=== PATIENT | male | born 1995 | race Caucasian/White ===

== ENCOUNTER 2017-01-08 20:51 | Emergency (ER) | payer OTHER ==
[2017-01-08] MEDS ORDERED: LORazepam INJ* 2 MG/ML 1 ML VIAL IV PUSH ONE (20:58)
[2017-01-08] MEDS ORDERED: diPHENhydraMINE IV* 50 MG/ML 1 ml VIAL (BENADRYL) IM ONE (21:02)
[2017-01-08] MEDS ORDERED: Haloperidol INJ IV/IM* 5 MG/ML AMP IM ONE (21:02)
[2017-01-08] MEDS ORDERED: LORazepam INJ* 2 MG/ML 1 ML VIAL IM ONE (21:02)
--- NOTE | 2017-01-08 21:02 | ED ---
Psychiatric Complaint - HPI Summary HPI Summary: Patient [place] after being found weaving in and out of traffic. He was picked up by police intoxicated and stating he had just broken up with his GF and wanted to commit suicide. He is in handcuffs on arrival and extremely tearful and combative with police. He is refusing a physical exam and continues to state that he wants to leave. He will not identify his name or other information. It is unknown if he has any allergies, or medications. - History Of Current Complaint Chief Complaint: EDMentalHealth Time Seen by Provider: 01/08/17 20:53 Hx Obtained From: Patient Onset/Duration: Gradual Onset Timing: Constant Severity Initially: Moderate Severity Currently: Severe Character: Depressed, Fearful, Angry, Frustrated, Stuporous Aggravating Factor(s): Recent Stress, Alcohol Use Alleviating Factor(s): Nothing Associated Signs And Symptoms: Positive: Hostile, Paranoid Behavior Has Suicidal: Reports: Thoughts Ingestion History: Type/Name Of Drug - alcohol, unknown amount - Risk Factor(s) Completed Suicide Risk Factors: Male, White Syrian PMH/Surg Hx/FS Hx/Imm Hx Previously Healthy: Yes - Immunization History Hx Pertussis Vaccination: No Immunizations Up to Date: Unable to Obtain/Confirm Infectious Disease History: Unable to Obtain/Confirm Infectious Disease History: Denies: Traveled Outside the [place] in Last 30 Days - Social History Occupation: Student Lives: Alone Alcohol Use: Rare Hx Substance Use: No Substance Use Type: Reports: None Hx Tobacco Use: No Smoking Status (MU): Unknown if Ever Smoked Review of Systems Constitutional: Negative Eyes: Negative Cardiovascular: Negative Respiratory: Negative Gastrointestinal: Negative Positive: no symptoms reported, see HPI Skin: Negative Positive: Anxious, Depressed All Other Systems Reviewed And Are Negative: Yes Physical Exam Triage Information Reviewed: Yes Vital Signs Reviewed: Yes Appearance: Positive: Well-Nourished, Ill-Appearing Skin: Positive: Skin Color Reflects Adequate Perfusion Head/Face: Positive: Normal Head/Face Inspection Eyes: Positive: EOMI, ONOFRE, Conjunctiva Clear Neck: Positive: Supple, No Lymphadenopathy Respiratory/Lung Sounds: Positive: Clear to Auscultation, Breath Sounds Present Cardiovascular: Positive: Normal, RRR, Pulses are Symmetrical in both Upper and Lower Extremities Musculoskeletal: Positive: Normal, Strength/ROM Intact Neurological: Positive: Abnormal Gait, Disoriented Psychiatric: Positive: Anxious, Depressed, Patient Uncooperative for Exam Diagnostics - Laboratory Result Diagrams: 01/08/17 21:48 01/08/17 21:48 Lab Statement: Any lab studies that have been ordered have been reviewed, and results considered in the medical decision making process. Course/Dx - Course Course Of Treatment: B52 given on arrival. Patient was extremely combative and tearful. He is in handcuffs on arrival. He denies suicidal ideations on arrival, but to EMS he was stating he was trying to commit suicide since he just broke up with his GF. Will need MHE. Labs drawn. Will await sobriety to re-assess. sign out to dr. horowitz - Differential Dx/Clinical Impression Differential Diagnosis/HQI/PQRI: Positive: Alcohol Intoxication, Anxiety, Drug Overdose/Intentional, Suicide Attempt Provider Diagnosis: Alcohol intoxication, Depression Discharge - Discharge Plan Condition: Stable Disposition: HOME Patient Education Materials: Depression (ED) Referrals: Non Staff,Doctor [Primary Care Provider] -
[2017-01-08] MEDS ORDERED: LORazepam INJ* 2 MG/ML 1 ML VIAL ONE (21:05)
[2017-01-08] MEDS ORDERED: diPHENhydraMINE IV* 50 MG/ML 1 ml VIAL (BENADRYL) ONE (21:05)
[2017-01-08] MEDS ORDERED: Haloperidol INJ IV/IM* 5 MG/ML AMP ONE (21:05)
[2017-01-08 21:33] LABS: Urine Bilirubin Negative (Negative); Urine Glucose Negative (Negative); Urine Nitrite Negative (Negative)
[2017-01-08 21:52] LABS: Hematocrit 43 % (42-52); Hemoglobin 14.3 g/dl (14.0-18.0); Mean Corpuscular HGB Conc 33 g/dl (31-36); Mean Corpuscular Hemoglobin 28 pg (27-31); Mean Corpuscular Volume 85 fL (80-94); Mean Platelet Volume 7 um3 (7.4-10.4); Red Blood Count 5.06 10^6/ul (4.0-5.4); Red Cell Distribution Width 14 % (10.5-15); White Blood Count 8.9 10^3/ul (3.5-10.8)
[2017-01-08 21:54] LABS: Benzodiazepine Urine Screen None Detected (None Detect)
[2017-01-08 22:06] LABS: ALT 16 U/L (7-52); AST 24 U/L (13-39); Albumin 4.5 g/dL (3.2-5.2); Alkaline Phosphatase 52 U/L (34-104); Anion Gap 9 mmol/L (2-11); BUN/Creatinine Ratio 14.1 (8-20); Blood Urea Nitrogen 13 mg/dL (6-24); CO2 Carbon Dioxide 25 mmol/L (22-32); Chloride 103 mmol/L (101-111); EGFR African American 134.9 (>60); EGFR Non-African American 104.9 (>60); Globulin 3.9 g/dL (2-4); Glucose 104 mg/dL (70-100); Potassium 3.6 mmol/L (3.5-5.0); Sodium 137 mmol/L (133-145); Total Protein 8.4 g/dL (6.4-8.9)
[2017-01-08 22:31] LABS: Acetaminophen < 15 mcg/mL; Alcohol 356 mg/dL (<10); Salicylate < 2.50 mg/dL (<30)
[2017-01-08 22:41] LABS: TSH (Thyroid Stimulating Horm) 0.78 mcIU/mL (0.34-5.60)
--- NOTE | 2017-01-09 16:06 | ED ---
Thaddeus Mckeon Soohyun, scribed for Víctor Miranda MD on 01/09/17 at 1354 . Progress - Progress Note Progress Note: Pt has been signed out from Dr. Gerardo at shift change. After Mental Health evaluation, pt is safe to discharge. - Consult/PCP Time Called: 06:00 Course/Dx - Diagnoses Provider Diagnoses: Alcohol intoxication, Depression The documentation as recorded by the krystleibThaddeus wakefield Soohyun accurately reflects the service I personally performed and the decisions made by , Víctor Miranda MD.
== END 2017-01-09 13:52 | disposition home or self-care (01) ==
LOC: ED 20:51
DX: F10.129 Alcohol abuse with intoxication, unspecified (principal); F32.9 Major depressive disorder, single episode, unspecified; Y90.8 Blood alcohol level of 240 mg/100 ml or more
CPT/HCPCS: 36415; 80053; 80307; 80320; 80329; 81003; 84443; 85025; 96372; 96374; 99285; G0480; J1200; J1630; J2060

== ENCOUNTER 2017-05-06 17:41 | Emergency (ER) | payer OTHER ==
[2017-05-06 17:57] VITALS: BP 133/79
--- NOTE | 2017-05-06 18:36 | UC ---
Head Injury HPI - HPI Summary HPI Summary: HIT IN RIGHT SIDE OF HEAD WHILE WRESTLING LAST NIGHT. NO LOC. NO N/V. NO NECK PAIN. NO HEADACHE. SOME DIFFICULTY FOCUSING. - History Of Current Complaint Chief Complaint: UCHeadInjury Stated Complaint: HEAD INJURY Time Seen by Provider: 05/06/17 18:07 Hx Obtained From: Patient Onset/Duration: Sudden Onset, Lasting Days, Still Present Severity Currently: Moderate Severity Initially: Moderate Pain Intensity: 0 Pain Scale Used: 0-10 Numeric Aggravating Factor(s): Nothing Alleviating Factor(s): Nothing Associated Signs And Symptoms: Positive: Confusion. Negative: LOC (Time In Secs./Mins/Hrs), LOC Duration Unknown, Memory Loss, Seizure, Epistaxis, Dental Malocclusion, Neck Pain, Nausea, Vomiting - Risk Factors SDH Risk Factor: Negative - Allergies/Home Medications Allergies/Adverse Reactions: Allergies Allergy/AdvReac Type Severity Reaction Status Date / Time No Known Allergies Allergy Verified 05/06/17 17:57 Home Medications: Home Medications Amphetamine-Dextroamphetamine [Adderall 10 mg-] 1 tab PO DAILY 05/06/17 [ History Confirmed 05/06/17] Lisdexamfetamine Dimesylate [Vyvanse] 30 mg PO 05/06/17 [History] PMH/Surg Hx/FS Hx/Imm Hx Previously Healthy: Yes - Surgical History Surgical History: None - Family History Known Family History: Negative: Seizure Disorder - Social History Occupation: Student Lives: With Family Alcohol Use: Rare Substance Use Type: Marijuana Substance Use Comment - Amount & Last Used: occasionally Smoking Status (MU): Unknown if Ever Smoked Review of Systems Constitutional: Negative Skin: Negative Eyes: Negative ENT: Negative Respiratory: Negative Cardiovascular: Negative Gastrointestinal: Negative Genitourinary: Negative Motor: Negative Neurovascular: Negative Musculoskeletal: Negative Neurological: Other - DIFFICULTY FOCUSING Psychological: Negative All Other Systems Reviewed And Are Negative: Yes Physical Exam Triage Information Reviewed: Yes Appearance: Well-Appearing, No Pain Distress, Well-Nourished Vital Signs: Initial Vital Signs Temp 99.2 F 05/06/17 17:53 Pulse 87 05/06/17 17:53 Resp 18 05/06/17 17:53 BP 133/79 05/06/17 17:53 Pulse Ox 99 05/06/17 17:53 Vital Signs Reviewed: Yes Eye Exam: Normal ENT Exam: Normal ENT: Positive: Normal ENT inspection, Hearing grossly normal, TMs normal Dental Exam: Normal Neck exam: Normal Neck: Positive: Supple, Nontender, No Lymphadenopathy Respiratory Exam: Normal Respiratory: Positive: Chest non-tender, Lungs clear, Normal breath sounds, No respiratory distress, No accessory muscle use Cardiovascular Exam: Normal Cardiovascular: Positive: RRR, No Murmur, Pulses Normal Abdominal Exam: Normal Musculoskeletal Exam: Normal Musculoskeletal: Positive: Strength Intact, ROM Intact Neurological Exam: Normal Neurological: Positive: Alert, Muscle Tone Normal, Other: - CN 2-12 INTACT Psychological Exam: Normal Psychological: Positive: Normal Response To Family Skin Exam: Normal Head Injury Course/Dx - Differential Dx/Diagnosis Differential Diagnosis/HQI/PQRI: Cervical Sprain, Concussion With LOC, Concussion Without LOC, Nasal Fracture Provider Diagnoses: CONCUSSION; POST-CONCUSSIVE SYNDROME Discharge - Discharge Plan Condition: Stable Disposition: HOME Patient Education Materials: Concussion (ED), Post Concussion Syndrome (ED) Forms: *School Release Referrals: [facility] [Outside] No Primary Care Phys,NOPCP [Primary Care Provider] -
== END 2017-05-06 18:26 | disposition home or self-care (01) ==
LOC: UCEAST 17:41
DX: S06.0X0A Concussion without loss of consciousness, initial encounter (principal); W22.8XXA Striking against or struck by other objects, initial encounter; Y93.83 Activity, rough housing and horseplay; Y92.9 Unspecified place or not applicable
CPT/HCPCS: 99211; G0463

== ENCOUNTER 2017-11-05 12:30 | Emergency (ER) | payer OTHER ==
[2017-11-05 12:40] VITALS: BP 133/86
[2017-11-05] MEDS ORDERED: Tetan/Diph/Pertus SYR(Tdap)* 0.5 ML SYR(BOOSTRIX) use SYR IM ONE (12:43)
[2017-11-05] MEDS ORDERED: Lidocaine 1% MPF* 2 ML VIAL INJ ONE (12:48)
--- NOTE | 2017-11-05 12:50 | UC ---
Laceration HPI - HPI Summary HPI Summary: 22 y/o male presents to the urgent care c/o left eyebrow laceration s/p tripping on snow and falling about 1hr ago. Pt reports bleeding stopped w/ pressure. Pain is 1/10, Pt denies LOC, visual disturbances, URIBE, dizziness, SOB, chest pain, N/V/D. Last Tetanus shot was 6 years ago. - History Of Current Complaint Chief Complaint: UCLaceration Stated Complaint: EYEBROW LACERATION Time Seen by Provider: 11/05/17 12:48 Hx Obtained From: Patient Laceration Location: Eye - Left eyebrow Mechanism Of Injury: Sharp Trauma Onset/Duration: Sudden Onset, Lasting Hours - 1 hr ago Severity: Mild Pain Intensity: 1 Pain Scale Used: 0-10 Numeric Aggravating Factors: Other: - touch Related History: Dominant Hand Right - Allergies/Home Medications Allergies/Adverse Reactions: Allergies Allergy/AdvReac Type Severity Reaction Status Date / Time No Known Allergies Allergy Verified 11/05/17 12:40 PMH/Surg Hx/FS Hx/Imm Hx Previously Healthy: Yes Other Psychological History: ADHD - Surgical History Surgical History: None - Family History Known Family History: Positive: None - Pt denies PMHX Negative: Seizure Disorder - Social History Occupation: Student Lives: Dormitory/Roommates Alcohol Use: Occasionally Substance Use Type: None Substance Use Comment - Amount & Last Used: occasionally Smoking Status (MU): Never Smoked Tobacco - Immunization History Most Recent Tetanus Shot: 6 years ago Review of Systems Constitutional: Negative Skin: Other - laceration on left eyebrow w/ swelling Eyes: Negative ENT: Negative Respiratory: Negative Cardiovascular: Negative Gastrointestinal: Negative Genitourinary: Negative Motor: Negative Neurovascular: Negative Musculoskeletal: Negative Neurological: Negative Psychological: Negative Is Patient Immunocompromised?: No All Other Systems Reviewed And Are Negative: Yes Physical Exam Triage Information Reviewed: Yes Vital Signs: Initial Vital Signs Temp 99.7 F 11/05/17 12:36 Pulse 126 11/05/17 12:36 Resp 16 11/05/17 12:36 BP 133/86 11/05/17 12:36 Pulse Ox 98 11/05/17 12:36 - Additional Comments Vital Signs Reviewed: Yes General: well developed, well nourished male sitting in the examining table w/ o any apparent distress Eye Exam: Normal Eyes: Positive: Conjunctiva Clear - PERRLA, EOMI, fundi grossly normal, ENT: Positive: Normal ENT inspection, Hearing grossly normal, Pharynx normal, TMs normal Neck: Positive: Supple, Nontender, No Lymphadenopathy Respiratory: Positive: Chest non-tender, Lungs clear, Normal breath sounds, No respiratory distress Cardiovascular: Positive: RRR, No Murmur, Pulses Normal, Brisk Capillary Refill Abdomen Description: Positive: Nontender, No Organomegaly, Soft. Negative: CVA Tenderness (R), CVA Tenderness (L) Bowel Sounds: Positive: Present Musculoskeletal: Positive: Strength Intact, ROM Intact, No Edema Neurological: Positive: Alert, Muscle Tone Normal Psychological Exam: Normal Skin: Positive:Lateral side of LF eyebrow w/ a superficial linear laceration abou 2.0cm in size. bleeding stopped, no foreign body observed. mild tenderness to palpation, moderate swelling, FROM of RT arm, sensation intact, capillary refill brisk, and pulses WNL. Laceration Repair - Laceration Repair 1 Description: Linear Laceration Size After Repair: Length (cm) - 2.0cm Modified For Repair: No Anesthesia Used: 1.0% Lido - 2 ml Irrigation With Pressure Irrigation Device: Yes Closure Material: Sutures - 6 Closure Method: Single Layer Suture Of: Skin, SQ Suture Type: Nylon Laceration Course/Dx - Course/Dx Course Of Treatment: 22 y/o male presents to the urgent care c/o left eyebrow laceration s/p tripping on snow and falling about 1hr ago. Pt reports bleeding stopped w/ pressure. Pain is 1/10, Pt denies LOC, visual disturbances, URIBE, dizziness, SOB, chest pain, N/V/D. Last Tetanus shot was 6 years ago. Hx obtained. Lateral side of LF eyebrow w/ a superficial linear laceration abou 2.0cm in size. LACERATION PROCEDURE NOTE: . Copious irrigation was done with saline by the nurse and the wound explored. There was no FB or deep structure injury noted. procedure was explained and consent obtained, Timeout performed. The wound was anesthetized with 2 mL of 1% lido/epi with good anesthesia. Sterile drape and prep were don. There were 6 sutures with 6.0 nylon type of suture. The length of the wound after closure was 2.0cm. No debridement done. Wound was covered bacitracin with sterile non adherent dressing. The Pt tolerated the procedure well without adverse effects. Neurovascular intact and FROM. Tdap ordered and applied by nurse. Pt advised to f/u suture removal in 4-5 days and if any signs of infection develop to immediately return to the urgent care of PCP for further management and treatment. Pt understood and agreed and left the clinic ambulating A&Ox3. - Differential Dx - Laceration/Wound Differental Diagnoses: Abrasion, Laceration, Puncture Wound, Tendon Laceration Provider Diagnoses: 1- Laceration repair of the left eyebrow s/p fall Discharge - Discharge Plan Condition: Stable Disposition: HOME Prescriptions: Bacitracin OINTMENT* 1 applic TOPICAL BID #1 tube Patient Education Materials: Care For Your Stitches (ED), Laceration (ED) Referrals: [facility] [place] [facility] [Outside] - 5 Days Additional Instructions: 1-Please apply topical antibiotic over the wound. Keep wound clean and dry. Aply Ice over wound for the following 24hrs 2- F/u suture removal in 4-5 days days w/ your PCP or here at the urgent care. 3-Take Ibuprofen or Tylenol PO q6-8hrs prn for pain or swelling. 4- If you develop fever or redness around your left eyebrow despite the antibiotic please go to the ER immediately or return to the Urgent care.
== END 2017-11-05 13:52 | disposition home or self-care (01) ==
LOC: UCEAST 12:30
DX: S01.112A Laceration without foreign body of left eyelid and periocular area, initial encounter (principal); W01.0XXA Fall on same level from slipping, tripping and stumbling without subsequent striking against object, initial encounter; Y92.9 Unspecified place or not applicable
CPT/HCPCS: 12011; 90471; 90715; 99212; G0010; G0463